=== PATIENT | female | born 1970 | race Caucasian/White ===

== ENCOUNTER 2017-12-03 15:59 | Emergency (ER) | END 2017-12-03 19:45 | disposition home or self-care (01) ==

== ENCOUNTER 2017-12-28 15:16 | Emergency (ER) | END 2017-12-28 19:50 | disposition home or self-care (01) ==

== ENCOUNTER 2017-12-31 14:21 | Emergency (ER) | END 2017-12-31 17:35 | disposition home or self-care (01) ==

== ENCOUNTER 2018-01-03 07:34 | Inpatient (IN) | END 2018-01-11 13:42 | disposition home health service (06) | DRG 872 ==

== ENCOUNTER 2018-01-22 18:44 | Emergency (ER) | END 2018-01-22 19:51 | disposition home or self-care (01) ==

== ENCOUNTER 2018-02-22 10:20 | Emergency (ER) | END 2018-02-22 11:26 | disposition home or self-care (01) ==

== ENCOUNTER 2019-04-18 18:44 | Emergency (ER) | payer MEDICAID ==
[~2019-04-18] VITALS: Ht 162.6 cm; Wt 60.8 kg
[~2019-04-18 18:44] MED LIST: CEFT1FRO2 IV; CYCL10TA7 PO; IBUP-1542 PO; TRAM50TA2 PO
[2019-04-18 18:50] VITALS: Ht 162.6 cm; Wt 60.8 kg
[2019-04-18] MEDS ORDERED: KETOROLAC 60 MG INJ IM STA (20:39)
[2019-04-18] MEDS ORDERED: CYCLOBENZAPRINE 10 MG TAB PO ONE (21:00)
[2019-04-18] MEDS ORDERED: SOD CHLORIDE 0.9% 1,000 ML IV ONE (22:00)
[2019-04-18 23:49] VITALS: BP 148/80; PULSE 78; RESP 16
== END 2019-04-18 23:50 | disposition home or self-care (01) ==
LOC: FTE 18:44
DX: M54.5 Low back pain (principal)
CPT/HCPCS: 36415; 74176; 80053; 81001; 81025; 85025; 96360; 96372; J1885; J7030; Z7502; Z7610; 81003